=== PATIENT | male | born 1985 | race Two or more races ===

== ENCOUNTER 2024-05-15 06:25 | Emergency (ER) | payer SELFPAY ==
[~2024-05-15] VITALS: Ht 172.7 cm; Wt 86.0 kg
[2024-05-15 07:06] LABS: Basophils # (auto) 0.1 10 ^3/uL (0-0.2); Basophils % (auto) 0.7 % (0.0-2.0); Eosinophils # (auto) 0.2 10 ^3/uL (0-0.8); Eosinophils % (auto) 1.9 % (0.0-7.0); Hematocrit 44.3 % (41.0-53.0); Hemoglobin 15.5 g/dL (13.5-17.5); Lymphocytes % (auto) 33.4 % (10.0-50.0); Mean Corpuscular Hemoglobin 32.1 pg (28.0-32.0); Mean Corpuscular Volume 91.6 fL (80.0-100.0); Monocytes # (auto) 0.3 10 ^3/uL (0-1.3); Monocytes % (auto) 3.3 % (0.0-12.0); Neutrophils # (auto) 5.5 10 ^3/uL (1.6-8.6); Neutrophils % (auto) 60.7 % (37.0-80.0); Nucleated Red Blood Cells % 0.1 %; Platelet Count (auto) 379 10^3/uL (140-450); Red Blood Cells 4.84 10^6/uL (4.5-5.90); Red Cell Distribution Width 13.5 % (11.8-14.3)
[2024-05-15 07:27] LABS: Chloride 105 mmol/L (98-107); Potassium 3.7 mmol/L (3.5-5.1); Sodium 135 mmol/L (136-145)
[2024-05-15 07:28] LABS: Anion Gap 7 (5-15); Carbon Dioxide 23 mmol/L (20-30)
[2024-05-15 07:29] LABS: Calcium 9.3 mg/dL (8.7-10.4)
[2024-05-15 07:33] LABS: BUN/Creatinine Ratio 11.9 (10.0-20.0); Blood Urea Nitrogen 12 mg/dL (9-23); Glucose 117 mg/dL (74-106)
[2024-05-15 08:36] VITALS: BP 111/61; PULSE 90; RESP 18; O2SAT 97
== END 2024-05-15 08:50 | disposition home or self-care (01) ==
LOC: ER 06:25 → EDBD 06:25 → ER 08:50
DX: G40.89 Other seizures (principal)
CPT/HCPCS: 36415; 70450; 80048; 80164; 85025; 93005